=== PATIENT | female | born 2000 | race Caucasian/White ===

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

== ENCOUNTER 2022-03-26 16:48 | Inpatient (IN) ==
[2022-03-26] MEDS ORDERED: Buffered Lidocaine 1% SYRIN 1 ml INTRADERM ONE ×2 (17:39→17:40)
[2022-03-26] MEDS ORDERED: Lactated Ringers 1000 ml BAG 1,000 ML IV ONE ×2 (17:40→18:56)
[2022-03-26] MEDS ORDERED: Nalbuphine 10 MG/ML 1 ML VIAL IV PRN (17:40)
[2022-03-26] MEDS ORDERED: Promethazine INJ(RESTRICTED) 25 MG/ML 1 ml VIAL IV PRN (17:40)
[2022-03-26 18:09] LABS: ABS Basophils 0.1 10^3/ul (0-0.2); ABS Eosinophils 0.2 10^3/ul (0-0.6); ABS Lymphocytes 2.2 10^3/ul (1.0-4.8); ABS Monocytes 0.9 10^3/ul (0-0.8); ABS Neutrophils 14.1 10^3/ul (1.5-7.7); Eosinophil % 1.3 %; Hematocrit 36 % (35-47); Hemoglobin 11.9 g/dL (12.0-16.0); Lymphocyte % 12.6 %; Mean Corpuscular HGB Conc 33 g/dL (31-36); Mean Corpuscular Hemoglobin 27 pg (27-31); Mean Corpuscular Volume 84 fL (80-97); Mean Platelet Volume 7.9 fL (7.4-10.4); Platelet Count 422 10^3/uL (150-450); Red Blood Count 4.33 10^6 /uL (3.70-4.87); Red Cell Distribution Width 14 % (10-15); White Blood Count 17.4 10^3/uL (3.5-10.8)
[2022-03-26] MEDS ORDERED: OBEPIDURAL (200 ML) 200 ML EPIDURAL ONE (18:10)
[2022-03-26] MEDS ORDERED: Lidocaine/Epinephrin 1.5%/200 5 ML AMP INJ ONE (18:10)
[2022-03-26] MEDS ORDERED: Sodium Citrate/Citric Acid LIQ 15 ML UDC PO PRN (18:56)
[2022-03-26] MEDS ORDERED: Phenylephrine 40 mcg/mL 10mL (400mcg) SYRINGE IV PUSH PRN ×2 (18:56)
[2022-03-26] MEDS ORDERED: OBEPIDURAL (200 ML) 200 ML EPIDURAL SCH (19:00)
[2022-03-26] MEDS ORDERED: Lactated Ringers 1000 ml BAG 1,000 ML IV SCH (19:00)
[2022-03-26] MEDS: Lactated Ringers 1000 ml BAG 1,000 ML IV SCH ×2 (19:03→20:56)
[2022-03-26] MEDS: Terbutaline INJ 1 MG/ML 1 ml VIAL ONE (19:09)
[2022-03-26 20:30] LABS: Urine Benzodiazepine Screen None Detected (None Detect); Urine Cannabinoids Screen Presumptive Positive (None Detect); Urine Opiates Screen None Detected (None Detect)
[2022-03-26 20:33] LABS: Urine Appearance Cloudy; Urine Bilirubin Negative (Negative); Urine Blood Negative (Negative); Urine Color Yellow; Urine Glucose Negative (Negative); Urine Ketones 1+ (Negative); Urine Nitrite Negative (Negative); Urine Protein 1+(30 mg/dL) (Negative); Urine Specific Gravity 1.023 (1.002-1.030); Urine Urobilinogen Negative (Negative)
[2022-03-26 20:54] LABS: Urine Bacteria Absent (Absent); Urine Red Blood Cell 1+(3-5/hpf) (Absent); Urine Squamous Epithelial Cell Present (Absent); Urine White Blood Cell 3+(>20/hpf) (Absent)
[2022-03-27] MEDS: Terbutaline INJ 1 MG/ML 1 ml VIAL ONE (00:05)
[2022-03-27] MEDS ORDERED: Terbutaline INJ 1 MG/ML 1 ml VIAL SUBCUT ONE (01:07)
[2022-03-27] MEDS ORDERED: Glycerin ADULT 2.4 gm SUPP PR PRN (04:55)
[2022-03-27] MEDS ORDERED: Dibucaine 1% OINT 28.35 GM TUBE PR PRN (04:55)
[2022-03-27] MEDS ORDERED: Witch Hazel PAD JAR TOPICAL PRN (04:55)
[2022-03-27] MEDS ORDERED: Lactated Ringers 1000 ml BAG 1,000 ML IV SCH (05:00)
[2022-03-28 07:05] LABS: ABS Basophils 0.1 10^3/ul (0-0.2); ABS Eosinophils 0.5 10^3/ul (0-0.6); ABS Lymphocytes 3.5 10^3/ul (1.0-4.8); ABS Monocytes 0.7 10^3/ul (0-0.8); ABS Neutrophils 7.3 10^3/ul (1.5-7.7); Eosinophil % 3.9 %; Hematocrit 31 % (35-47); Hemoglobin 10.2 g/dL (12.0-16.0); Lymphocyte % 29.5 %; Mean Corpuscular HGB Conc 33 g/dL (31-36); Mean Corpuscular Hemoglobin 28 pg (27-31); Mean Corpuscular Volume 85 fL (80-97); Mean Platelet Volume 7.4 fL (7.4-10.4); Platelet Count 323 10^3/uL (150-450); Red Blood Count 3.64 10^6 /uL (3.70-4.87); Red Cell Distribution Width 14 % (10-15)
[2022-03-29 08:09] VITALS: BP 129/58
== END 2022-03-29 13:58 | disposition home or self-care (01) | DRG 560 ==
LOC: MCHOBOUT 16:48 → MCHOB 17:31
PROVIDERS: ADMIT Midwife; ATTEND Midwife

== ENCOUNTER 2023-08-10 18:19 | Inpatient (IN) ==
[2023-08-10] MEDS: Lactated Ringers 1000 ml BAG 1,000 ML IV ONE (19:13)
[2023-08-10] MEDS ORDERED: Lidocaine 1% VIAL 10 MG/ML 30 ML VIAL INJ PRN (19:19)
[2023-08-10] MEDS: Penicillin G Potassium IV 5,000,000 UNITS in NS 0.9% 100 ml BAG 100 ML IVPB ONE (19:47)
[2023-08-10 20:04] LABS: ABS Basophils 0.1 10^3/uL (0.0-0.1); ABS Eosinophils 0.4 10^3/uL (0.0-0.5); ABS Lymphocytes 2.3 10^3/uL (1.0-4.8); ABS Monocytes 0.7 10^3/uL (0.0-0.9); Eosinophil % 2.7 %; Hematocrit 37.4 % (35-45); Hemoglobin 12.7 g/dL (11.5-14.3); Lymphocyte % 16.8 %; Mean Corpuscular Hemoglobin 28.8 pg (27-33); Mean Corpuscular Hgb Conc 33.9 g/dL (31-36); Mean Corpuscular Volume 85.1 fL (80-97); Mean Platelet Volume 7.1 fL (7.5-11.2); Platelet Count 323 10^3/uL (150-450); Red Cell Distribution Width 13.9 % (12-17); White Blood Count 13.4 10^3/uL (3.8-11.8)
[2023-08-10] MEDS: Sodium Citrate/Citric Acid LIQ 15 ML UDC ONE (20:14)
[2023-08-10] MEDS ORDERED: fentaNYL 100 mcg/2 ml 50 MCG/ML VIAL IV ONE (20:16)
[2023-08-10] MEDS ORDERED: Morphine PF AMP (0.5MG/ML) 5 MG/10 ML AMP IV ONE (20:16)
[2023-08-10] MEDS ORDERED: Ondansetron 4 mg VIAL 2 MG/ML 2 ml VIAL IV ONE (20:23)
[2023-08-10] MEDS ORDERED: Phenylephrine 40 mcg/mL 10mL (400mcg) SYRINGE INJ ONE (20:23)
[2023-08-10] MEDS ORDERED: Dexamethasone IV 4 MG/ML VIAL 1 ml VIAL IV SLOW PU ONE (20:23)
[2023-08-10 20:33] LABS: Urine Benzodiazepine Screen None Detected (None Detect); Urine Cannabinoids Screen Presumptive Positive (None Detect); Urine Opiates Screen None Detected (None Detect)
[2023-08-10] MEDS: ceFOXitin 2 GM IVPREMIX 2 GM/50 ML BAG IVPB ONE (20:45)
[2023-08-10] MEDS ORDERED: Oxytocin 10 UNITS/ML 1 ML VIAL IV ONE (20:55)
[2023-08-10] MEDS ORDERED: Acetaminophen IV 1 GM/100ML 1,000 MG/100 ML BAG IV ONE (21:06)
[2023-08-10] MEDS: ceFOXitin 2 GM IVPREMIX 2 GM/50 ML BAG ONE (21:27)
[2023-08-10] MEDS ORDERED: Witch Hazel PAD JAR TOPICAL PRN (21:54)
[2023-08-10] MEDS ORDERED: Glycerin ADULT 2.4 gm SUPP PR PRN (21:54)
[2023-08-10] MEDS ORDERED: Metoclopramide 5 MG/ML VIAL (10 mg) IV PRN (22:00)
[2023-08-10] MEDS ORDERED: Naloxone 0.4 mg VIAL 0.4 mg/ml 1 ml VIAL IV PUSH PRN (22:00)
[2023-08-10] MEDS ORDERED: Lactated Ringers 1000 ml BAG 1,000 ML IV SCH (22:00)
[2023-08-10] MEDS ORDERED: Ondansetron 4 mg VIAL 2 MG/ML 2 ml VIAL IV PRN (22:00)
[2023-08-10] MEDS ORDERED: Acetaminophen IV 1 GM/100ML 1,000 MG/100 ML BAG IV PRN (22:00)
[2023-08-11] MEDS ORDERED: Penicillin G Potassium IV 3,000,000 UNITS in NS 0.9% 100 ml BAG 100 ML IVPB SCH
[2023-08-11 06:38] LABS: ABS Basophils 0.2 10^3/uL (0.0-0.1); ABS Lymphocytes 1.8 10^3/uL (1.0-4.8); ABS Monocytes 0.6 10^3/uL (0.0-0.9); ABS Neutrophils 18.3 10^3/uL (1.5-7.6); ABS Nucleated RBC 0.01 10^3/ul; Eosinophil % 0.1 %; Hematocrit 32.7 % (35-45); Hemoglobin 10.8 g/dL (11.5-14.3); Lymphocyte % 8.8 %; Mean Corpuscular Hemoglobin 28.5 pg (27-33); Mean Corpuscular Hgb Conc 33.1 g/dL (31-36); Mean Platelet Volume 6.7 fL (7.5-11.2); Platelet Count 289 10^3/uL (150-450); Red Cell Distribution Width 14.2 % (12-17)
[2023-08-11] MEDS: Oxytocin in LR 20,000 MILLI.UNIT/1,000 ML BAG IV SCH (18:15)
[2023-08-11] MEDS: Lactated Ringers 1000 ml BAG 1,000 ML IV SCH (18:15)
[2023-08-12 07:35] VITALS: BP 107/68
== END 2023-08-12 16:45 | disposition home or self-care (01) | DRG 540 ==
LOC: MCHOBOUT 18:19 → MCHOB 19:11
PROVIDERS: ADMIT Obstetrics & Gynecology; ATTEND Obstetrics & Gynecology